=== PATIENT | male | born 1995 | race Caucasian/White ===

== ENCOUNTER 2017-12-06 19:53 | Emergency (ER) | payer MEDICAID ==
[~2017-12-06] VITALS: Ht 177.8 cm; Wt 69.5 kg
[2017-12-06 20:00] VITALS: BP 145/73
[2017-12-06] MEDS ORDERED: DEXAMETHASONE 4 MG TABLET ONE (20:23)
[2017-12-06] MEDS ORDERED: DEXAMETHASONE 4 MG/ML, 1ML PO ONE (20:30)
== END 2017-12-06 21:12 | disposition home or self-care (01) ==
LOC: ED 20:45
DX: J03.01 Acute recurrent streptococcal tonsillitis (principal); Z60.2 Problems related to living alone
CPT/HCPCS: 99283; J1100